=== PATIENT | female | born 1975 | race Caucasian/White ===

== ENCOUNTER 2017-02-24 14:35 | Emergency (ER) | payer SELFPAY ==
[~2017-02-24] VITALS: Ht 165.1 cm; Wt 113.4 kg
[~2017-02-24 14:35] MED LIST: AMOX500C2 PO; ASPI-586 PO; CEPH250C PO; DOCU100C37 PO; FERR325T18 PO; FERR325T74 PO; HYDR50TA76 PO; IBP600T1 PO; IBUP-1773 PO; LABE200T3 PO; NAPR-243 PO; OXYC-471 PO; PENI500T PO; PRM5C60 TOP; TRAM50TA2 PO; TRM50T PO; labetalol PO
--- OUTSIDE RECORDS SUMMARY | 2017-02-24 14:44 | XMS REPORT ---
Author Author TOBI TIM [facility] Address [address] [place] [address] Care Team Providers Care Dope Firer Name Role Phone TOBI TIM Unavailable PROBLEMS Type Condition ICD9-CM Code [id number] Code Onset Dates Condition Status SNOMED Code Problem Rubella non-immune status, antepartum O99.89 Active 471042876 Assessment Acute otitis externa of right ear, unspecified type H60.501 Oct, Active 04741593 Problem Gestational diabetes mellitus in third trimester, unspecified diabetic control O24.419 Active 45861114 Problem Preeclampsia, third trimester O14.93 Active 598870336 Problem Supervision of elderly multigravida in third trimester O09.523 Active 782558006 Problem Previous delivery affecting O34.21 Active 205977216 Problem Anemia during O99.019 Active 317941338 Problem Gestational hypertension, third trimester O13.3 Active 01571670 ALLERGIES Substance Reaction Event Type Date Status N.K.D.A. Unknown Non Drug Allergy Oct, Unknown SOCIAL HISTORY No smoking Hx information available PLAN OF CARE VITAL SIGNS Height 64 in 2015-10-27 Weight 204.4 lbs 2015-10-27 Heart Rate 80 bpm 2015-10-27 Respiratory Rate 20 2015-10-27 BMI 35.08 kg/m2 2015-10-27 Blood pressure systolic 144 mmHg 2015-10-27 Blood pressure diastolic 92 mmHg 2015-10-27 MEDICATIONS Medication Instructions Dosage Frequency Start Date End Date Duration Status Cortisporin 3.5-49216-6 Otic Three times a day 4 drops into affected ear 8h Oct, 07 days Active Ovando 5-325 MG Orally every 6 hrs 1 tablet as needed 6h Oct, Active RESULTS No Results PROCEDURES Procedure Date Ordered Related Diagnosis Body Site Office Visit, Est Pt., Level 3 Oct 27, 2015 IMMUNIZATIONS No Known Immunizations
--- OUTSIDE RECORDS SUMMARY | 2017-02-24 14:44 | XMS REPORT ---
Author Author ALEKSANDER JIMENEZ eClinicalWorks Address Unknown Phone Unavailable Care Team Providers Care Computer Field Technician Name Role Phone ALEKSANDER JIMENEZ CP Unavailable Allergies, Adverse Reactions, Alerts Substance Reaction Event Type N.K.D.A. Info Not Available Non Drug Allergy Problems Problem Type Condition Code Onset Dates Condition Status Assessment Gestational hypertension, third trimester O13.3 Active Assessment 29 weeks gestation of Z3A.29 Active Problem Supervision of elderly multigravida in third trimester O09.523 Active Problem Previous delivery affecting O34.21 Active Problem Gestational hypertension, third trimester O13.3 Active Problem Prediabetes R73.09 Active Assessment Supervision of elderly multigravida in third trimester O09.523 Active Problem History of pre-eclampsia Z87.59 Active Problem Rubella non-immune status, antepartum O99.89 Active Medications Medication Code System Code Instructions Start Date End Date Status Dosage Labetalol HCl [facility] [address]-21 100 MG Orally 2 times a day Feb 03, 2015 1 tablet Procedures Procedure Coding System Code Date Office Visit, Est Pt., Level 2 CPT-4 66448 Feb 03, 2015 URINE-NO MICRO CPT-4 96596 Feb 03, 2015 Vital Signs Date/Time: Feb 03, 2015 Temperature 97.2 F Weight 249.4 lbs Height 64 in BMI 42.809 Index Blood Pressure Diastolic 96 mmHg Blood Pressure Systolic 152 mmHg Cardiac Monitoring Heart Rate 80 bpm Results Name Result Date Reference Range Unit Abnormality Flag UA OB DIP (IN HOUSE) ----Glucose negative 20150203 ----Protein negative 20150203 Summary Purpose eClinicalWorks Submission
--- OUTSIDE RECORDS SUMMARY | 2017-02-24 14:44 | XMS REPORT ---
Author Author RUPERTO FIDEL Organization [facility] Address [address] [place] [address] Care Team Providers Care Government Auditor Name Role Phone FIDEL HICKEY Unavailable PROBLEMS Type Condition ICD9-CM Code [id number] Code Onset Dates Condition Status SNOMED Code Problem Previous delivery affecting O34.21 Active 151748024 Problem Gestational hypertension, third trimester O13.3 Active 46661722 Problem Supervision of elderly multigravida in third trimester O09.523 Active 479869221 Problem Rubella non-immune status, antepartum O99.89 Active 329150099 Problem Adjustment disorder with depressed mood F43.21 Active 79869306 Problem Alcohol dependence in remission F10.21 Active 380293140 Problem Preeclampsia, third trimester O14.93 Active 015983749 Problem Gestational diabetes mellitus in third trimester, unspecified diabetic control O24.419 Active 99308020 Problem Methamphetamine dependence F15.20 Active 795868953 Problem Anemia during O99.019 Active 149989052 ALLERGIES No Information SOCIAL HISTORY Never Assessed PLAN OF CARE VITAL SIGNS MEDICATIONS Unknown Medications RESULTS No Results PROCEDURES Procedure Date Ordered Result Body Site Alcohol and/or drug services July 04, 2016 ALCOHOL AND/OR DRUG ASSESSMENT July 04, 2016 IMMUNIZATIONS No Known Immunizations MEDICAL (GENERAL) HISTORY Type Description Date Medical History drug abuse-meth Medical History hypertension Medical History alcoholism Surgical History GALLSTONES 2003 Surgical History 2006 Hospitalization History MISCARRIAGE/DNC 2012
--- OUTSIDE RECORDS SUMMARY | 2017-02-24 14:44 | XMS REPORT ---
Author Author MARIA LUISA MENDES Organization [facility] Address [address] [place] [address] Care Team Providers Care Production Welding Supervisor Name Role Phone MARIA LUISA MENDES Unavailable PROBLEMS Type Condition ICD9-CM Code NCU53-ZQ Code Onset Dates Condition Status SNOMED Code Problem Previous delivery affecting O34.21 Active 216779751 Problem Gestational hypertension, third trimester O13.3 Active 74372712 Problem Supervision of elderly multigravida in third trimester O09.523 Active 285136773 Problem Rubella non-immune status, antepartum O99.89 Active 788790992 Problem Adjustment disorder with depressed mood F43.21 Active 59736112 Problem Alcohol dependence in remission F10.21 Active 934866539 Problem Preeclampsia, third trimester O14.93 Active 161885878 Problem Gestational diabetes mellitus in third trimester, unspecified diabetic control O24.419 Active 52134693 Problem Methamphetamine dependence F15.20 Active 685257640 Problem Anemia during O99.019 Active 901370428 ALLERGIES No Information SOCIAL HISTORY Never Assessed PLAN OF CARE VITAL SIGNS MEDICATIONS Unknown Medications RESULTS No Results PROCEDURES Procedure Date Ordered Result Body Site Alcohol and/or drug services July 04, 2016 IMMUNIZATIONS No Known Immunizations MEDICAL (GENERAL) HISTORY Type Description Date Medical History drug abuse-meth Medical History hypertension Medical History alcoholism Surgical History GALLSTONES 2003 Surgical History 2006 Hospitalization History MISCARRIAGE/DNC 2012
--- OUTSIDE RECORDS SUMMARY | 2017-02-24 14:44 | XMS REPORT ---
Author Author RUPERTO FIDEL Organization [facility] Address [address] [place] [address] Care Team Providers Care Bobbin Painter Name Role Phone FIDEL HICKEY Unavailable PROBLEMS Type Condition ICD9-CM Code MCR28-DX Code Onset Dates Condition Status SNOMED Code Problem Previous delivery affecting O34.21 Active 622749744 Problem Gestational hypertension, third trimester O13.3 Active 46911142 Problem Supervision of elderly multigravida in third trimester O09.523 Active 011466929 Problem Rubella non-immune status, antepartum O99.89 Active 984631193 Problem Adjustment disorder with depressed mood F43.21 Active 70995657 Problem Alcohol dependence in remission F10.21 Active 266442310 Problem Preeclampsia, third trimester O14.93 Active 924457743 Problem Gestational diabetes mellitus in third trimester, unspecified diabetic control O24.419 Active 72210477 Problem Methamphetamine dependence F15.20 Active 422237514 Problem Anemia during O99.019 Active 961126380 ALLERGIES No Information SOCIAL HISTORY Never Assessed PLAN OF CARE VITAL SIGNS MEDICATIONS Unknown Medications RESULTS No Results PROCEDURES No Known procedures IMMUNIZATIONS No Known Immunizations MEDICAL (GENERAL) HISTORY Type Description Date Medical History drug abuse-meth Medical History hypertension Medical History alcoholism Surgical History GALLSTONES 2002 Surgical History 2006 Hospitalization History MISCARRIAGE/DNC 2012
--- OUTSIDE RECORDS SUMMARY | 2017-02-24 14:44 | XMS REPORT ---
Author Author ALEKSANDER JIMENEZ [facility] eClinicalWorks Address Unknown Phone Unavailable Care Team Providers Care Flame Planer Name Role Phone ALEKSANDER JIMENEZ CP Unavailable Allergies, Adverse Reactions, Alerts Substance Reaction Event Type N.K.D.A. Info Not Available Non Drug Allergy Problems Problem Type Condition Code Onset Dates Condition Status Assessment Supervision of elderly multigravida, second trimester O09.522 Active Assessment 24 weeks gestation of Z3A.24 Active Problem Supervision of elderly multigravida, second trimester O09.522 Active Problem Previous delivery affecting O34.21 Active Problem Gestational hypertension, second trimester O13.2 Active Problem Prediabetes R73.09 Active Assessment Gestational hypertension, second trimester O13.2 Active Problem History of pre-eclampsia Z87.59 Active Problem Rubella non-immune status, antepartum O99.89 Active Medications Medication Code System Code Instructions Start Date End Date Status Dosage Trazodone HCl [facility] [address]-71 50 MG Orally Once a day July 13, 2014 1 tablet at bedtime as needed Ferrous Sulfate [facility] [address]-79 325 (65 Fe) MG Orally Once a day Sep 28, 2014 1 tablet Zoloft [facility] [address]-75 25 MG Orally Once a day July 13, 2014 1 tablet Vitamins ND 0 (Dis) Orally not defined Procedures Procedure Coding System Code Date Office Visit, Est Pt., Level 2 CPT-4 20223 Dec 27, 2014 URINE-NO MICRO CPT-4 54964 Dec 27, 2014 Vital Signs Date/Time: Dec 27, 2014 Temperature 98.8 F Weight 250.0 lbs Height 64 in BMI 42.912 Index Blood Pressure Diastolic 84 mmHg Blood Pressure Systolic 132 mmHg Cardiac Monitoring Heart Rate 84 bpm Results Name Result Date Reference Range Unit Abnormality Flag UA OB DIP (IN HOUSE) Summary Purpose eClinicalWorks Submission
--- OUTSIDE RECORDS SUMMARY | 2017-02-24 14:44 | XMS REPORT ---
Author Author ALEKSANDER JIMENEZ [facility] eClinicalWorks Address Unknown Phone Unavailable Care Team Providers Care Accounting Systems Analyst Name Role Phone ALEKSANDER JIMENEZ Unavailable Allergies No Known Allergies Problems Problem Type Condition Code Onset Dates Condition Status Assessment Proteinuria affecting O12.10 Active Problem Supervision of elderly multigravida in third trimester O09.523 Active Problem Previous delivery affecting O34.21 Active Problem Gestational hypertension, third trimester O13.3 Active Assessment Supervision of elderly multigravida in third trimester O09.523 Active Assessment History of pre-eclampsia Z87.59 Active Problem Rubella non-immune status, antepartum O99.89 Active Assessment 31 weeks gestation of Z3A.31 Active Medications No Known Medications Procedures Procedure Coding System Code Date LACTATE (LD) (LDH) ENZYME CPT-4 49619 Feb 14, 2015 ASSAY OF BLOOD/URIC ACID CPT-4 60803 Feb 14, 2015 URINE-NO MICRO CPT-4 88788 Feb 14, 2015 VENIPUNCT, ROUTINE* CPT-4 96343 Feb 14, 2015 Office Visit, Est Pt., Level 3 CPT-4 09338 Feb 14, 2015 ASSAY OF URINE CREATININE CPT-4 97176 Feb 14, 2015 COMPREHEN METABOLIC PANEL CPT-4 09909 Feb 14, 2015 GLUCOSE TEST CPT-4 63542 Feb 14, 2015 COMPLETE CBC W/AUTO DIFF WBC CPT-4 90389 Feb 14, 2015 Vital Signs Date/Time: Feb 14, 2015 Temperature 97.6 F Weight 257.3 lbs Height 64 in BMI 44.165 Index Blood Pressure Diastolic 90 mmHg Blood Pressure Systolic 160 mmHg Cardiac Monitoring Heart Rate 82 bpm Results Name Result Date Reference Range Unit Abnormality Flag URIC ACID, SERUM ----Uric Acid, Serum 2.7 20150214 2.5-7.1 mg/dL URINE PROTEIN TO CREATININE RATIO ----Creatinine, Urine 80.1 20150214 15.0-278.0 mg/dL ----Protein/Creat Ratio 273 20150214 0-200 mg/g creat H ----Protein,Total,Urine 21.9 89486904 0.0-15.0 mg/dL H LDH ----LDH 162 20150214 119-226 IU/L GLUCOSE BHARTI 1 HOUR ----Gestational Diabetes Screen 172 20150214 65-139 mg/dL H CBC ----RDW 16.7 91316777 12.3-15.4 % H ----MCHC 30.0 00528547 31.5-35.7 g/dL L ----MCH 20.9 86526277 26.6-33.0 pg L ----MCV 70 88970628 79-97 fL L ----Hematocrit 27.0 83980569 34.0-46.6 % L ----Hemoglobin 8.1 70271080 11.1-15.9 g/dL L ----Immature Granulocytes 0 15084034 % ----RBC 3.88 12685085 3.77-5.28 x10E6/uL ----WBC 8.9 60312235 3.4-10.8 x10E3/uL ----Immature Grans (Abs) 0.0 74978818 0.0-0.1 x10E3/uL ----Eos (Absolute) 0.1 79296319 0.0-0.4 x10E3/uL ----Basos 0 87491533 % ----Baso (Absolute) 0.0 01608965 0.0-0.2 x10E3/uL ----Neutrophils (Absolute) 6.3 62005594 1.4-7.0 x10E3/uL ----Lymphs (Absolute) 1.9 96803178 0.7-3.1 x10E3/uL ----Monocytes(Absolute) 0.4 20651748 0.1-0.9 x10E3/uL ----Neutrophils 71 20902146 % ----Lymphs 22 51494015 % ----Monocytes 5 64299193 % ----Eos 2 79764303 % ----Platelets 413 47081587 150-379 x10E3/uL H CMP ----Creatinine, Serum 0.45 26406087 0.57-1.00 mg/dL L ----BUN 4 20150214 6-24 mg/dL L ----eGFR If Africn Am 145 71722209 >59 mL/min/1.73 ----eGFR If NonAfricn Am 126 71991730 >59 mL/min/1.73 ----Sodium, Serum 136 01549690 134-144 mmol/L ----BUN/Creatinine Ratio 9 20150214 9-23 ----Chloride, Serum 103 20150214 97-108 mmol/L ----Potassium, Serum 3.9 20150214 3.5-5.2 mmol/L ----Carbon Dioxide, Total 21 20150214 18-29 mmol/L ----Protein, Total, Serum 6.1 20150214 6.0-8.5 g/dL ----Calcium, Serum 8.0 20150214 8.7-10.2 mg/dL L ----Globulin, Total 3.0 17530860 1.5-4.5 g/dL ----Albumin, Serum 3.1 20150214 3.5-5.5 g/dL L ----Bilirubin, Total <0.2 20150214 0.0-1.2 mg/dL ----Glucose, Serum 186 20150214 65-99 mg/dL H ----A/G Ratio 1.0 20150214 1.1-2.5 L ----ALT (SGPT) 6 20150214 0-32 IU/L ----Alkaline Phosphatase, S 117 88108116 39-117 IU/L ----AST (SGOT) 8 20150214 0-40 IU/L Summary Purpose eClinicalWorks Submission
--- OUTSIDE RECORDS SUMMARY | 2017-02-24 14:45 | XMS REPORT ---
Author Author ALEKSANDER JIMENEZ [facility] eClinicalWorks Address Unknown Phone Unavailable Care Team Providers Care Fisher Trawl Line Name Role Phone ALEKSANDER JIMENEZ CP Unavailable Allergies No Known Allergies Problems Problem Type Condition Code Onset Dates Condition Status Problem Previous delivery affecting O34.21 Active Problem History of pre-eclampsia Z87.59 Active Problem Supervision of elderly multigravida, second trimester O09.522 Active Assessment Elevated glucose tolerance test R73.02 Active Problem Rubella non-immune status, antepartum O99.89 Active Problem Glucose intolerance (pre-diabetes) 790.29 Active Medications No Known Medications Results No Known Results Summary Purpose eClinicalWorks Submission
--- OUTSIDE RECORDS SUMMARY | 2017-02-24 14:45 | XMS REPORT ---
Author Author ALEKSANDER JIMENEZ [facility] eClinicalWorks Address Unknown Phone Unavailable Care Team Providers Care Abnormal Psychology Teacher Name Role Phone ALEKSANDER JIMENEZ Unavailable Allergies No Known Allergies Problems Problem Type Condition Code Onset Dates Condition Status Problem Preeclampsia, third trimester O14.93 Active Problem Anemia during O99.019 Active Problem Gestational diabetes mellitus in third trimester, unspecified diabetic control O24.419 Active Problem Previous delivery affecting O34.21 Active Problem Rubella non-immune status, antepartum O99.89 Active Problem Gestational hypertension, third trimester O13.3 Active Problem Supervision of elderly multigravida in third trimester O09.523 Active Medications No Known Medications Results No Known Results Summary Purpose eClinicalWorks Submission
--- OUTSIDE RECORDS SUMMARY | 2017-02-24 14:45 | XMS REPORT ---
Author Author ALEKSANDER JIMENEZ [facility] eClinicalWorks Address Unknown Phone Unavailable Care Team Providers Care Splicer Operator Name Role Phone ALEKSANDER JIMENEZ CP Unavailable Allergies No Known Allergies Problems Problem Type Condition Code Onset Dates Condition Status Problem Previous delivery affecting O34.21 Active Problem History of pre-eclampsia Z87.59 Active Problem Supervision of elderly multigravida, second trimester O09.522 Active Assessment Supervision of elderly multigravida, second trimester O09.522 Active Assessment 18 weeks gestation of Z3A.18 Active Problem Rubella non-immune status, antepartum O99.89 Active Problem Glucose intolerance (pre-diabetes) 790.29 Active Medications No Known Medications Procedures Procedure Coding System Code Date URINE-NO MICRO CPT-4 32513 Nov 18, 2014 GLUCOSE TEST CPT-4 14693 Nov 18, 2014 Office Visit, Est Pt., Level 3 CPT-4 93870 Nov 18, 2014 No Charge CPT-4 01376 Nov 18, 2014 TRICHOMONAS VAGIN, DIR PROBE CPT-4 92606 Nov 18, 2014 VENIPUNCT, ROUTINE* CPT-4 99210 Nov 18, 2014 CULTURE, BACTERIA, OTHER CPT-4 85936 Nov 18, 2014 Vital Signs Date/Time: Nov 18, 2014 Temperature 98.4 F Weight 248.4 lbs Height 64 in BMI 42.638 Index Blood Pressure Diastolic 94 mmHg Blood Pressure Systolic 138 mmHg Cardiac Monitoring Heart Rate 80 bpm Results Name Result Date Reference Range Unit Abnormality Flag TRICHOMONAS (IN HOUSE) GLUCOSE BHARTI 1 HOUR Summary Purpose eClinicalWorks Submission
--- OUTSIDE RECORDS SUMMARY | 2017-02-24 14:45 | XMS REPORT ---
Author Author ALEKSANDER JIMENEZ [facility] eClinicalWorks Address Unknown Phone Unavailable Care Team Providers Care Panel Lay Up Worker Name Role Phone ALEKSANDER JIMENEZ CP Unavailable Allergies No Known Allergies Problems Problem Type Condition Code Onset Dates Condition Status Problem Supervision of elderly multigravida in third trimester O09.523 Active Problem Previous delivery affecting O34.21 Active Problem Gestational hypertension, third trimester O13.3 Active Problem Prediabetes R73.09 Active Assessment Proteinuria affecting O12.10 Active Problem History of pre-eclampsia Z87.59 Active Problem Rubella non-immune status, antepartum O99.89 Active Medications No Known Medications Procedures Procedure Coding System Code Date ASSAY OF PROTEIN, URINE CPT-4 09281 Feb 16, 2015 Results No Known Results Summary Purpose eClinicalWorks Submission
--- OUTSIDE RECORDS SUMMARY | 2017-02-24 14:45 | XMS REPORT ---
Author AIDEN Smith [facility] eClinicalWorks Address Unknown Phone Unavailable Care Team Providers Care Elderly Sitter Name Role Phone AIDEN EATON CP Unavailable Allergies, Adverse Reactions, Alerts Substance Reaction Event Type N.K.D.A. Info Not Available Non Drug Allergy Problems Problem Type Condition ICD-9 Code Onset Dates Condition Status Problem Previous section V45.89 Active Problem History of pre-eclampsia in prior , currently V23.49 Active Problem Supervision of elderly multigravida (>=35 years old at time of delivery) V23.82 Active Assessment Impacted cerumen of left ear 380.4 Active Assessment Chronic serous OM (otitis media) 381.10 Active Medications No Known Medications Procedures Procedure Coding System Code Date Office Visit, Est Pt., Level 3 CPT-4 36482 Oct 06, 2014 Vital Signs Date/Time: Oct 06, 2014 Temperature 98.4 F Weight 249.2 lbs Height 64 in BMI 42.77 Index Blood Pressure Diastolic 82 mmHg Blood Pressure Systolic 136 mmHg Cardiac Monitoring Heart Rate 72 bpm Results No Known Results Summary Purpose eClinicalWorks Submission
--- OUTSIDE RECORDS SUMMARY | 2017-02-24 14:45 | XMS REPORT ---
Author Author LAURE CASTELLANOS [facility] Address [address] [place] [address] Care Team Providers Care Powder Worker Tnt Name Role Phone LAURE CASTELLANOS Unavailable PROBLEMS Type Condition ICD9-CM Code HEE73-FL Code Onset Dates Condition Status SNOMED Code Problem Previous delivery affecting O34.21 Active 799028664 Problem Gestational hypertension, third trimester O13.3 Active 41534486 Problem Supervision of elderly multigravida in third trimester O09.523 Active 685549738 Problem Rubella non-immune status, antepartum O99.89 Active 485906165 Problem Adjustment disorder with depressed mood F43.21 Active 92951315 Problem Alcohol dependence in remission F10.21 Active 254048250 Problem Preeclampsia, third trimester O14.93 Active 361669749 Problem Gestational diabetes mellitus in third trimester, unspecified diabetic control O24.419 Active 63880786 Problem Methamphetamine dependence F15.20 Active 014384599 Problem Anemia during O99.019 Active 860545364 ALLERGIES No Information SOCIAL HISTORY Never Assessed PLAN OF CARE VITAL SIGNS MEDICATIONS Unknown Medications RESULTS No Results PROCEDURES No Known procedures IMMUNIZATIONS No Known Immunizations MEDICAL (GENERAL) HISTORY Type Description Date Medical History drug abuse-meth Medical History hypertension Medical History alcoholism Surgical History GALLSTONES 2002 Surgical History 2006 Hospitalization History MISCARRIAGE/DNC 2012
--- OUTSIDE RECORDS SUMMARY | 2017-02-24 14:45 | XMS REPORT ---
Author Author ALEKSANDER JIMENEZ [facility] eClinicalWorks Address Unknown Phone Unavailable Care Team Providers Care Orchard Worker Name Role Phone ALEKSANDER JIMENEZ CP Unavailable Allergies No Known Allergies Problems Problem Type Condition Code Onset Dates Condition Status Assessment Vaginal candidiasis B37.3 Active Assessment History of pre-eclampsia Z87.59 Active Assessment 28 weeks gestation of Z3A.28 Active Problem Previous delivery affecting O34.21 Active Problem History of pre-eclampsia Z87.59 Active Problem Supervision of elderly multigravida in third trimester O09.523 Active Assessment Supervision of elderly multigravida in third trimester O09.523 Active Assessment Previous delivery affecting O34.21 Active Problem Rubella non-immune status, antepartum O99.89 Active Problem Prediabetes R73.09 Active Medications Medication Code System Code Instructions Start Date End Date Status Dosage Clotrimazole [facility] [address]-01 1 % Vaginal Once a day Jan 24, 2015Jan 1 application at bedtime Procedures Procedure Coding System Code Date COMPLETE CBC W/AUTO DIFF WBC CPT-4 89400 Jan 24, 2015 Office Visit, Est Pt., Level 3 CPT-4 51230 Jan 24, 2015 URINE-NO MICRO CPT-4 40570 Jan 24, 2015 Vital Signs Date/Time: Jan 24, 2015 Temperature 98.2 F Weight 256.1 lbs Height 64 in BMI 43.959 Index Blood Pressure Diastolic 90 mmHg Blood Pressure Systolic 154 mmHg Cardiac Monitoring Heart Rate 84 bpm Results Name Result Date Reference Range Unit Abnormality Flag UA OB DIP (IN HOUSE) ----Glucose negative 20150124 ----Protein negative 20150124 Summary Purpose eClinicalWorks Submission
--- OUTSIDE RECORDS SUMMARY | 2017-02-24 14:45 | XMS REPORT ---
Author Author ALEKSANDER JIMENEZ [facility] eClinicalWorks Address Unknown Phone Unavailable Care Team Providers Care Rotational Moulding Operator Name Role Phone ALEKSANDER JIMENEZ Unavailable Allergies No Known Allergies Problems Problem Type Condition Code Onset Dates Condition Status Assessment Gestational diabetes mellitus in third trimester, unspecified diabetic control O24.419 Active Problem Preeclampsia, third trimester O14.93 Active Problem Anemia during O99.019 Active Problem Gestational diabetes mellitus in third trimester, unspecified diabetic control O24.419 Active Problem Previous delivery affecting O34.21 Active Problem Rubella non-immune status, antepartum O99.89 Active Problem Gestational hypertension, third trimester O13.3 Active Problem Supervision of elderly multigravida in third trimester O09.523 Active Medications Medication Code System Code Instructions Start Date End Date Status Dosage Blood Glucose Test Strip NDC 0 Contour Meter 4 times a day Feb 23, 2015 as directed Mandy Contour Monitor NDC [address]-04 w/Device Feb 23, 2015 as directed Mandy Microlet Lancets NDC 0 ... 4 times a day Feb 23, 2015 as directed Results No Known Results Summary Purpose eClinicalWorks Submission
--- OUTSIDE RECORDS SUMMARY | 2017-02-24 14:45 | XMS REPORT ---
Author ALEKSANDER Abraham eClinicalWorks Address Unknown Phone Unavailable Care Team Providers Care Lead Assistant Manager Name Role Phone ALEKSANDER JIMENEZ Unavailable Allergies, Adverse Reactions, Alerts Substance Reaction Event Type N.K.D.A. Info Not Available Non Drug Allergy Problems Problem Type Condition Code Onset Dates Condition Status Assessment Anemia during O99.019 Active Assessment Supervision of elderly multigravida in third trimester O09.523 Active Assessment Preeclampsia, third trimester O14.93 Active Problem Preeclampsia, third trimester O14.93 Active Problem Anemia during O99.019 Active Problem Gestational diabetes mellitus in third trimester, unspecified diabetic control O24.419 Active Problem Previous delivery affecting O34.21 Active Problem Rubella non-immune status, antepartum O99.89 Active Problem Gestational hypertension, third trimester O13.3 Active Problem Supervision of elderly multigravida in third trimester O09.523 Active Assessment 32 weeks gestation of Z3A.32 Active Assessment Gestational hypertension, third trimester O13.3 Active Assessment Gestational diabetes mellitus in third trimester, unspecified diabetic control O24.419 Active Medications Medication Code System Code Instructions Start Date End Date Status Dosage Labetalol HCl [facility] [address]-72 200 MG Orally 2 times a day Feb 03, 2015 1 tablet Ferrous Sulfate [facility] [address]-20 325 (65 Fe) MG Orally 2 times a day Feb 22, 2015 1 tablet Procedures Procedure Coding System Code Date LACTATE (LD) (LDH) ENZYME CPT-4 38624 Feb 22, 2015 ASSAY OF BLOOD/URIC ACID CPT-4 98472 Feb 22, 2015 URINE-NO MICRO CPT-4 63402 Feb 22, 2015 Office Visit, Est Pt., Level 4 CPT-4 66263 Feb 22, 2015 NON-STRESS TEST CPT-4 43365 Feb 22, 2015 VENIPUNCT, ROUTINE* CPT-4 50144 Feb 22, 2015 ASSAY OF PROTEIN, URINE CPT-4 56237 Feb 22, 2015 COMPREHEN METABOLIC PANEL CPT-4 61497 Feb 22, 2015 COMPLETE CBC W/AUTO DIFF WBC CPT-4 24318 Feb 22, 2015 ASSAY OF URINE CREATININE CPT-4 62856 Feb 22, 2015 Vital Signs Date/Time: Feb 22, 2015 Temperature 98.2 F Weight 251.7 lbs Height 64 in BMI 43.204 Index Blood Pressure Diastolic 100 mmHg Blood Pressure Systolic 152 mmHg Cardiac Monitoring Heart Rate 96 bpm Results Name Result Date Reference Range Unit Abnormality Flag NON-STRESS TEST LDH ----LDH 183 20150223 119-226 IU/L UA OB DIP (IN HOUSE) ----Glucose negative 20150222 ----Protein trace 20150222 ROUTINE VENIPUNCTURE CMP ----BUN/Creatinine Ratio 8 20150223 9-23 L ----eGFR If Africn Am 141 59470327 >59 mL/min/1.73 ----eGFR If NonAfricn Am 122 44047239 >59 mL/min/1.73 ----Creatinine, Serum 0.49 20150223 0.57-1.00 mg/dL L ----Chloride, Serum 102 20150223 97-108 mmol/L ----Potassium, Serum 4.4 18169245 3.5-5.2 mmol/L ----Sodium, Serum 136 59472688 134-144 mmol/L ----Protein, Total, Serum 6.8 15550393 6.0-8.5 g/dL ----Albumin, Serum 3.3 65745018 3.5-5.5 g/dL L ----Globulin, Total 3.5 22908387 1.5-4.5 g/dL ----A/G Ratio 0.9 20150223 1.1-2.5 L ----BUN 4 20150223 6-24 mg/dL L ----Glucose, Serum 186 41256189 65-99 mg/dL H ----Carbon Dioxide, Total 19 20150223 18-29 mmol/L ----Calcium, Serum 8.8 32299467 8.7-10.2 mg/dL ----AST (SGOT) 11 20150223 0-40 IU/L ----ALT (SGPT) 6 20150223 0-32 IU/L ----Bilirubin, Total <0.2 14342510 0.0-1.2 mg/dL ----Alkaline Phosphatase, S 134 20150223 39-117 IU/L H URIC ACID, SERUM ----Uric Acid, Serum 2.7 20150223 2.5-7.1 mg/dL CBC ----Hemoglobin 7.9 20150223 11.1-15.9 g/dL L ----RBC 3.87 20150223 3.77-5.28 x10E6/uL ----MCV 70 20150223 79-97 fL L ----Hematocrit 27.1 20150223 34.0-46.6 % L ----MCHC 29.2 20150223 31.5-35.7 g/dL L ----MCH 20.4 50392447 26.6-33.0 pg L ----Platelets 426 20150223 150-379 x10E3/uL H ----RDW 17.1 20150223 12.3-15.4 % H ----Neutrophils 84 50375624 % ----Monocytes 4 65222389 % ----Lymphs 12 83020149 % ----Basos 0 20150223 % ----Eos 0 86998367 % ----Immature Grans (Abs) 0.0 44725744 0.0-0.1 x10E3/uL ----Lymphs (Absolute) 1.2 82676788 0.7-3.1 x10E3/uL ----WBC 10.0 90534769 3.4-10.8 x10E3/uL ----Immature Granulocytes 0 28383632 % ----Neutrophils (Absolute) 8.3 67738066 1.4-7.0 x10E3/uL H ----Baso (Absolute) 0.0 38642651 0.0-0.2 x10E3/uL ----Monocytes(Absolute) 0.4 41754860 0.1-0.9 x10E3/uL ----Eos (Absolute) 0.0 45191717 0.0-0.4 x10E3/uL Summary Purpose eClinicalWorks Submission
--- OUTSIDE RECORDS SUMMARY | 2017-02-24 14:45 | XMS REPORT ---
Author Author ALEX COLEMAN [facility] eClinicalWorks Address Unknown Phone Unavailable Care Team Providers Care Costume Technician Name Role Phone ALEX COLEMAN CP Unavailable Allergies, Adverse Reactions, Alerts Substance Reaction Event Type N.K.D.A. Info Not Available Non Drug Allergy Problems Problem Type Condition Code Onset Dates Condition Status Assessment Elevated blood pressure I10 Active Assessment Sore throat J02.9 Active Assessment Strep throat J02.0 Active Problem Preeclampsia, third trimester O14.93 Active [...] Instructions Start Date End Date Status Dosage Theraflu Cold & Cough [facility] [address]-12 10-20-20 MG Orally every 4 hrs 1 packet as needed Ferrous Sulfate [facility] [address]-75 325 (65 Fe) MG Orally 2 times a day Feb 22, 2015 1 tablet NyQuil NDC 0 not defined Amoxicillin [facility] [address]-39 500 MG Orally 3 times a day Sep 28, 2015 Oct 08, 2015 1 capsule Procedures Procedure Coding System Code Date Office Visit, Est Pt., Level 3 CPT-4 37827 Sep 28, 2015 STREP A ASSAY W/OPTIC CPT-4 94554 Sep 28, 2015 Vital Signs Date/Time: Sep 28, 2015 Cardiac Monitoring Heart Rate 78 bpm Weight 204.5 lbs Height 64 in BMI 35.10 Index Blood Pressure Diastolic 100 mmHg Blood Pressure Systolic 132 mmHg Results No Known Results Summary Purpose eClinicalWorks Submission
--- OUTSIDE RECORDS SUMMARY | 2017-02-24 14:45 | XMS REPORT ---
Author Author ALEX COLEMAN Organization [employer] Address Unknown Phone Unavailable Care Team Providers Care Bumper Machine Operator Name Role Phone ALEX COLEMAN CP Unavailable Allergies No Known Allergies Problems [...]
--- OUTSIDE RECORDS SUMMARY | 2017-02-24 14:46 | XMS REPORT ---
Author Author MARIA LUISA MENDES Organization [facility] Address [address] [place] [address] Care Team Providers Care Vocational Rehabilitation Consultant Name Role Phone MARIA LUISA MENDES Unavailable PROBLEMS Type Condition ICD9-CM Code OPH19-JK Code Onset Dates Condition Status SNOMED Code Problem Previous delivery affecting O34.21 Active 996151081 Problem Gestational hypertension, third trimester O13.3 Active 23865073 Problem Supervision of elderly multigravida in third trimester O09.523 Active 829056895 Problem Rubella non-immune status, antepartum O99.89 Active 282613898 Problem Adjustment disorder with depressed mood F43.21 Active 04811199 Problem Alcohol dependence in remission F10.21 Active 106326471 Problem Preeclampsia, third trimester O14.93 Active 010294507 Problem Gestational diabetes mellitus in third trimester, unspecified diabetic control O24.419 Active 44569254 Problem Methamphetamine dependence F15.20 Active 435535707 Problem Anemia during O99.019 Active 594775934 ALLERGIES No Information SOCIAL HISTORY Never Assessed PLAN OF CARE VITAL SIGNS MEDICATIONS Unknown Medications RESULTS No Results PROCEDURES Procedure Date Ordered Result Body Site Alcohol and/or drug services July 03, 2016 IMMUNIZATIONS No Known Immunizations MEDICAL (GENERAL) HISTORY Type Description Date Medical History drug abuse-meth Medical History hypertension Medical History alcoholism Surgical History GALLSTONES 2003 Surgical History 2006 Hospitalization History MISCARRIAGE/DNC 2012
--- OUTSIDE RECORDS SUMMARY | 2017-02-24 14:46 | XMS REPORT | Continuity of Care Document ---
Author Author [facility] Address Unknown Phone Unavailable Allergies Active Description Code Type Severity Reaction Onset Reported/Identified Relationship to Patient Clinical Status Yes No Known Drug Allergies [id number] Drug Allergy Unknown N/A 01/05/2007 Medications There is no data. Problems Date Dx Coded Attending Type Code Diagnosis Diagnosed By 10/30/2007 LAURE CASTELLANOS DO 278.02 OVERWEIGHT 10/30/2007 LAURE CASTELLANOS DO 401.1 HYPERTENSION, BENIGN ESSENTIAL 10/30/2007 LAURE CASTELLANOS DO 723.9 CERVICAL NECK DISORDER NOS 10/30/2007 NAGI LEONE 278.02 OVERWEIGHT 10/30/2007 NAGI LEONE 401.1 HYPERTENSION, BENIGN ESSENTIAL 10/30/2007 NAGI LEONE 723.9 CERVICAL NECK DISORDER NOS 11/29/2009 LAURE CASTELLANOS DO 034.0 STREPTOCOCCAL SORE THROAT 11/29/2009 LAURE CASTELLANOS DO 382.00 OTITIS MEDIA ACUTE SUPPURATIVE 11/29/2009 NAGI LEONE 034.0 STREPTOCOCCAL SORE THROAT 11/29/2009 NAGI LEONE 382.00 OTITIS MEDIA ACUTE SUPPURATIVE 12/17/2011 Ot 521.00 12/17/2011 Ot 525.9 01/09/2012 Ot 521.00 01/09/2012 Ot 525.9 03/03/2012 LAURE CASTELLANOS DO V25.12 IUD REMOVAL 03/03/2012 LAURE CASTELLANOS DO V73.81 HPV SCREENING 03/03/2012 LAURE CASTELLANOS DO V74.5 STD SCREEN 03/03/2012 LAURE CASTELLANOS DO V76.2 CERVICAL CANCER SCREENING (PAP SMEAR) 03/03/2012 NAGI LEONE V25.12 IUD REMOVAL 03/03/2012 NAGI LEONE V73.81 HPV SCREENING 03/03/2012 [facility], NAGI Delgado V74.5 STD SCREEN 03/03/2012 MITRA ALVAREZ, NAGI Sandy V76.2 CERVICAL CANCER SCREENING (PAP SMEAR) 07/26/2012 ÁNGEL AYALA, LA NENA Fuentes Ot 782.1 01/24/2013 BENJAMIN MAGUIRE DELIMER Ot 620.2 01/24/2013 BENJAMIN MAGUIRE DELIMER Ot 623.8 01/24/2013 BENJAMIN MAGUIRE DELIMER Ot 640.03 01/24/2013 BENJAMIN MAGUIRE DELIMER Ot 654.43 01/26/2013 SANDRA QUINTERO DO Ot 285.1 01/26/2013 SANDRA QUINTERO DO Ot 634.11 04/19/2014 [facility], NAGI Sandy 626.6 METRORRHAGIA 04/19/2014 MITRA ALVAREZ, NAGI Sandy V72.31 FARM LOAN REPRESENTATIVE EXAM, ROUTINE 04/19/2014 MITRA ALVAREZ, NAGI Sandy V76.10 BREAST CANCER SCREENING 06/15/2014 [facility], NAGI Sandy 309.0 AD ADJ D/O W DEPRESSED 09/01/2014 BAR NICK Ot 218.9 09/01/2014 BAR NICK Ot 640.03 09/01/2014 BAR NICK Ot 648.93 10/08/2014 ALBINA MONDRAGON MD Ot 648.93 10/08/2014 ALBINA MONDRAGON MD Ot 910.4 10/08/2014 ALBINA MONDRAGON MD Ot E000.8 10/08/2014 ALBINA MONDRAGON MD Ot E906.4 10/10/2014 ANJELICA TREVINO A DELIMER Ot V58.81 10/11/2014 SHAWANDA TREVINOIDI A DELIMER Ot V58.81 10/20/2014 BELINDA ANJELICA A DELIMER Ot V58.81 11/23/2014 BELINDA ANJELICA A DELIMER Ot V58.81 12/08/2014 ALEKSANDER JIMENEZ MD Ot O09.522 12/08/2014 ALEKSANDER JIMENEZ MD Ot Z3A.19 12/12/2014 ALEKSANDER JIMENEZ MD N Ot R73.02 01/03/2015 BARBARA AYALA, ALEKSANDER Odom Ot O09.522 01/03/2015 BARBARA AYALA, ALEKSANDER Odom Ot Z3A.25 03/02/2015 FENECH DO, LUCI Wray Ot O14.03 03/02/2015 FENECH DO, LUCI Wray Ot O26.853 03/02/2015 FENECH DO, LUCI S Ot Z3A.34 03/20/2015 FENECH DO, LUCI S Ot D62 03/20/2015 FENECH DO, LUCI S Ot E66.01 03/20/2015 FENECH DO, LUCI S Ot E88.81 03/20/2015 FENECH DO, LUCI S Ot N39.0 03/20/2015 FENECH DO, LUCI S Ot O09.523 03/20/2015 FENECH DO, LUCI S Ot O14.13 03/20/2015 FENECH DO, LUCI Wray Ot O23.43 03/20/2015 FENECH DO, LUCI Wray Ot O34.21 03/20/2015 FENECH DO, LUCI S Ot O90.81 03/20/2015 FENECH DO, LUCI S Ot O99.013 03/20/2015 FENECH DO, LUCI S Ot O99.214 03/20/2015 FENECH DO, LUCI S Ot O99.284 03/20/2015 FENECH DO, LUCI Wray Ot Z37.0 03/20/2015 FENECH DO, LUCI Wray Ot Z3A.35 03/20/2015 FENECH DO, LUCI Wray Ot Z68.41 03/28/2015 Ot O10.919 03/28/2015 Ot Z3A.00 03/31/2015 BARBARA AYALA, ALEKSANDER Odom Ot O14.90 03/31/2015 BARBARA AYALA, ALEKSANDER Odom Ot O99.810 03/31/2015 ALEKSANDER JIMENEZ MD Ot Z3A.00 04/05/2015 Ot O10.919 04/05/2015 Ot Z3A.00 05/22/2015 ALEKSANDER JIMENEZ MD Ot O14.90 05/22/2015 BARBARA AYALA, ALEKSANDER Odom Ot O99.810 05/22/2015 BARBARA AYALA, ALEKSANDER Odom Ot Z3A.00 Procedures Code Description [place] [address] IUD REMOVAL 03/03/2012 09016 GC/CHLAM PROBE (STATE) 03/03/2012 77980 TRICHOMONAS (IN-HOUSE) 03/03/2012 03886 PAP SMEAR 03/03/2012 Q0091 PAP SMEAR OBTAIN SMEAR 03/03/2012 77184 PSYCH DIAGNOSTIC EVALUATION 06/15/2014 Results There is no data. Encounters ACCT No. Visit Date/Time Discharge Status Pt. Type Provider Facility Loc./Unit Complaint [id number] 06/15/2014 10:52:00 06/15/2014 23:59:59 CLS Outpatient MITRA BEAUCHAMP NAGI Sandy [id number] 03/03/2012 15:05:00 03/03/2012 23:59:59 CLS Outpatient LAURE CASTELLANOS DO [id number] 05/23/2015 00:07:00 05/23/2015 23:59:59 CLS Preadmit ALEKSANDER JIMENEZ MD Via [facility] LAB [id number] 02/21/2015 07:35:00 05/22/2015 00:01:00 DIS Outpatient ALEKSANDER JIMENEZ MD [facility] LAB [id number] 03/18/2015 16:15:00 03/20/2015 11:20:00 DIS Inpatient EVANGELINALUCI NASCIMENTO DO [facility] [id number] 03/02/2015 21:20:00 03/02/2015 22:41:00 DIS Outpatient LUCI BENSON DO [facility] [id number] 02/24/2015 12:27:00 02/24/2015 23:59:59 CLS Outpatient ALEKSANDER JIMENEZ MD Via [facility] RAD [id number] 02/22/2015 08:09:00 02/22/2015 08:36:00 DIS Outpatient LAURE CASTELLANOS DO [facility] [id number] 12/23/2014 12:06:00 12/23/2014 23:59:59 CLS Outpatient ALEKSANDER JIMENEZ MD Via [facility] RAD [id number] 11/29/2014 08:45:00 11/29/2014 23:59:59 CLS Outpatient ALEKSANDER JIMENEZ MD Via [facility] LAB [id number] 11/23/2014 14:45:00 11/23/2014 23:59:59 CLS Outpatient BARBARA AYALA, ALEKSANDER Odom [facility] RAD [id number] 10/08/2014 13:46:00 10/08/2014 17:13:00 DIS Emergency ALBINA MONDRAGON MD Via [facility] ER [id number] 09/29/2014 10:49:00 09/29/2014 23:59:59 CLS Outpatient BELINDAANJELICA GARLAND DELIMER Via [facility] RAD [id number] 09/01/2014 18:17:00 09/01/2014 21:27:00 DIS Emergency BAR NICK Via [facility] ER [id number] 01/25/2013 11:46:00 01/26/2013 11:50:00 DIS Outpatient SANDRA QUINTERO DO [facility] [id number] 01/24/2013 15:41:00 01/24/2013 18:38:00 DIS Emergency BENJAMIN MAGUIRE DELIMER Via [facility] ER [id number] 07/26/2012 17:21:00 07/26/2012 18:10:00 DIS Emergency ÁNGEL AYALA, LA NENA Fuentes Via [facility] ER [id number] 03/16/2015 12:06:00 Document Registration [id number] 01/09/2012 14:55:00 Document Registration [id number] 12/17/2011 02:16:00 Document Registration
--- OUTSIDE RECORDS SUMMARY | 2017-02-24 14:46 | XMS REPORT ---
Author Author ALEKSANDER JIMENEZ [facility] eClinicalWorks Address Unknown Phone Unavailable Care Team Providers Care Mill Oiler Name Role Phone ALEKSANDER JIMENEZ CP Unavailable Allergies No Known Allergies Problems Problem Type Condition Code Onset Dates Condition Status Problem Previous delivery affecting O34.21 Active Problem History of pre-eclampsia Z87.59 Active Problem Supervision of elderly multigravida, second trimester O09.522 Active Problem Rubella non-immune status, antepartum O99.89 Active Problem Glucose intolerance (pre-diabetes) 790.29 Active Medications No Known Medications Vital Signs Date/Time: Nov 30, 2014 Blood Pressure Diastolic 80 mmHg Blood Pressure Systolic 140 mmHg Height 64 in Results No Known Results Summary Purpose eClinicalWorks Submission
--- OUTSIDE RECORDS SUMMARY | 2017-02-24 14:46 | XMS REPORT ---
Author Author ALEKSANDER JIMENEZ [facility] eClinicalWorks Address Unknown Phone Unavailable Care Team Providers Care Brand Leader Name Role Phone ALEKSANDER JIMENEZ Unavailable Allergies [...]
--- OUTSIDE RECORDS SUMMARY | 2017-02-24 14:46 | XMS REPORT ---
Author Author ALEKSANDER JIMENEZ [facility] eClinicalWorks Address Unknown Phone Unavailable Care Team Providers Care Loader Technician Name Role Phone ALEKSANDER JIMENEZ CP Unavailable Allergies No Known Allergies Problems Problem Type Condition Code Onset Dates Condition Status Problem Supervision of elderly multigravida in third trimester O09.523 Active Problem Previous delivery affecting O34.21 Active Problem Gestational hypertension, third trimester O13.3 Active Problem Prediabetes R73.09 Active Assessment Elevated glucose tolerance test R73.02 Active Problem History of pre-eclampsia Z87.59 Active Problem Rubella non-immune status, antepartum O99.89 Active Medications No Known Medications Procedures Procedure Coding System Code Date GLUCOSE TOLERANCE TEST (GTT) CPT-4 26465 Feb 20, 2015 GTT-ADDED SAMPLES CPT-4 98322 Feb 20, 2015 Results No Known Results Summary Purpose [employer] Submission
--- OUTSIDE RECORDS SUMMARY | 2017-02-24 14:46 | XMS REPORT ---
Author ALEKSANDER Abraham [facility] eClinicalWorks Address Unknown Phone Unavailable Care Team Providers Care Field Pipelines Supervisor Name Role Phone ALEKSANDER JIMENEZ CP Unavailable Allergies No Known Allergies Problems Problem Type Condition ICD-9 Code Onset Dates Condition Status Problem Glucose intolerance (pre-diabetes) 790.29 Active Problem Supervision of elderly multigravida (>=35 years old at time of delivery) V23.82 Active Problem Rubella non-immune status, antepartum 646.83 Active Assessment History of pre-eclampsia in prior , currently V23.49 Active Problem Previous section V45.89 Active Problem History of pre-eclampsia in prior , currently V23.49 Active Medications No Known Medications Procedures Procedure Coding System Code Date Office Visit, Est Pt., Level 2 CPT-4 08932 Oct 21, 2014 URINE-NO MICRO CPT-4 24904 Oct 21, 2014 Vital Signs Date/Time: Oct 21, 2014 Temperature 97.0 F Weight 253.0 lbs Height 64 in BMI 43.42 Index Blood Pressure Diastolic 86 mmHg Blood Pressure Systolic 130 mmHg Results Name Result Date Reference Range Unit Abnormality Flag UA OB DIP (IN HOUSE) Summary Purpose eClinicalWorks Submission
--- OUTSIDE RECORDS SUMMARY | 2017-02-24 14:46 | XMS REPORT ---
Author Author ALEKSANDER JIMENEZ [facility] eClinicalWorks Address Unknown Phone Unavailable Care Team Providers Care Machine Umbrella Tipper Name Role Phone ALEKSANDER JIMENEZ CP Unavailable Allergies No Known Allergies Problems Problem Type Condition Code Onset Dates Condition Status Problem Supervision of elderly multigravida in third trimester O09.523 Active Problem Previous delivery affecting O34.21 Active Problem Gestational hypertension, third trimester O13.3 Active Problem Prediabetes R73.09 Active Problem History of pre-eclampsia Z87.59 Active Problem Rubella non-immune status, antepartum O99.89 Active Medications No Known Medications Vital Signs Date/Time: Feb 16, 2015 Blood Pressure Diastolic 90 mmHg Blood Pressure Systolic 144 mmHg Height 64 in Results No Known Results Summary Purpose eClinicalWorks Submission
--- OUTSIDE RECORDS SUMMARY | 2017-02-24 14:46 | XMS REPORT ---
Author Author ALEKSANDER JIMENEZ [facility] eClinicalWorks Address Unknown Phone Unavailable Care Team Providers Care Fish Peddler Name Role Phone ALEKSANDER JIMENEZ CP Unavailable Allergies No Known Allergies Problems Problem Type Condition Code Onset Dates Condition Status Assessment 22 weeks gestation of Z3A.22 Active Assessment Gestational hypertension, second trimester O13.2 Active Problem Supervision of elderly multigravida, second trimester O09.522 Active Problem Previous delivery affecting O34.21 Active Problem Gestational hypertension, second trimester O13.2 Active Problem Prediabetes R73.09 Active Assessment Supervision of elderly multigravida, second trimester O09.522 Active Problem History of pre-eclampsia Z87.59 Active Problem Rubella non-immune status, antepartum O99.89 Active Medications No Known Medications Procedures Procedure Coding System Code Date URINE-NO MICRO CPT-4 20159 Dec 16, 2014 Office Visit, Est Pt., Level 2 CPT-4 71017 Dec 16, 2014 Vital Signs Date/Time: Dec 16, 2014 Temperature 98.0 F Weight 251.7 lbs Height 64 in BMI 43.204 Index Blood Pressure Diastolic 96 mmHg Blood Pressure Systolic 146 mmHg Results Name Result Date Reference Range Unit Abnormality Flag UA OB DIP (IN HOUSE) Summary Purpose eClinicalWorks Submission
--- NOTE | 2017-02-24 15:25 | ED GU-Female ---
General Chief Complaint: -Female Stated Complaint: NO BLADDER CONTROL Source: patient Exam Limitations: no limitations History of Present Illness Time seen by provider: 15:23 Initial Comments To ER with reports of progressive loss of bladder control. This been ongoing for several months. She states that she's had several pregnancies. Initially this began months ago as dribbling herself when she would cough laugh or sneeze. Yesterday it progressed to the point that she felt the urge to urinate and before she could make it to the bathroom she completely soaked her pants with urine. She denies fevers chills nausea vomiting flank pain or low back pain. No saddle anesthesia. Activities at Onset: none Associated Symptoms: denies symptoms Allergies and Home Medications Allergies Coded Allergies: No Known Drug Allergies (Verified , 01/05/07) Home Medications Cephalexin 250 Mg Capsule, 500 MG PO QID, #21 Prescribed by: LUCI BENSON on 03/20/15813 Docusate Sodium 100 Mg Capsule, 100 MG PO BID, #40 Prescribed by: LUCI BENSON on 03/20/15813 Ferrous Sulfate 325 Mg Tablet, 325 MG PO DAILY@0700, #60 Prescribed by: LUCI BENSON on 03/20/15813 Ibuprofen 600 Mg Tablet, 600 MG PO Q6H PRN for PAIN, #80 Prescribed by: LUCI BENSON on 03/20/15813 Labetalol HCl 200 Mg Tablet, 200 MG PO TID, #90 Ref 1 Prescribed by: LUCI BENSON on 03/20/15813 Oxycodone HCl/Acetaminophen 1 Each Tablet, 1 TAB PO Q4H PRN for PAIN, #50 Prescribed by: LUCI BENSON on 03/20/15813 Constitutional: see HPI EENTM: see HPI Respiratory: no symptoms reported Cardiovascular: no symptoms reported Genitourinary: incontinence Musculoskeletal: no symptoms reported Past Fsgfnky-Kawytj-Nggewf Hx Patient Social History Recent Foreign Travel: No Contact w/Someone Who Travel: No Immunizations Up To Date Tetanus Booster (TDap): Unknown PED Vaccines UTD: Yes Date of Influenza Vaccine: Dec 18, 2014 Reproductive System Hx Reproductive Disorders: No Sexually Transmitted Disease: No HIV/AIDS: No Blood Transfusions Adverse Reaction to a Blood Tr: No Family Medical History Significant Family History: No Pertinent Family Hx Family Medial History: Autism (pt's brother) Physical Exam Vital Signs Vital Sign - Last 12Hours 02/24/17 15:30 Temp 98.4 Pulse 98 Resp 20 B/P (MAP) 151/101 (118) Pulse Ox 100 Capillary Refill : General Appearance: WD/WN, no apparent distress HEENT: PERRL/EOMI, normal ENT inspection Neck: non-tender, full range of motion Respiratory: no respiratory distress, no accessory muscle use Gastrointestinal: normal bowel sounds, non tender Neurologic/Psychiatric: alert, normal mood/affect, oriented x 3 Skin: normal color, warm/dry Progress/Results/Core Measures Suspected Sepsis SIRS Temperature: Pulse: Respiratory Rate: Blood Pressure / Mean: Results/Orders Lab Results Laboratory Tests Test 02/24/17 15:24 Range/Units Urine Color RED H Urine Clarity BLOODY H Urine pH 5 5-9 Urine Specific [place] 1.020 1.016-1.022 Urine Protein 3+ H NEGATIVE Urine Glucose (UA) NEGATIVE NEGATIVE Urine Ketones 1+ H NEGATIVE Urine Nitrite NEGATIVE NEGATIVE Urine Bilirubin NEGATIVE NEGATIVE Urine Urobilinogen 1 NORMAL MG/DL Urine Leukocyte Esterase 3+ H NEGATIVE Urine RBC (Auto) 5+ H NEGATIVE Urine RBC TNTC H /HPF Urine WBC 10-25 H /HPF Urine Squamous Epithelial Cells 0-2 /HPF Urine Crystals NONE /LPF Urine Bacteria TRACE /HPF Urine Casts NONE /LPF Urine Mucus NEGATIVE /LPF Urine Culture Indicated YES My Orders Orders - BENJAMIN MAGUIRE APRN Ua Culture If Indicated (02/24/17 14:41) Urine Bedside (02/24/17 14:41) Urine Culture (02/24/17 15:24) Vital Signs/I&O Vital Sign - Last 12Hours 02/24/17 15:30 Temp 98.4 Pulse 98 Resp 20 B/P (MAP) 151/101 (118) Pulse Ox 100 Capillary Refill : Departure Impression Impression: Primary Impression: Stress incontinence Additional Impression: Urinary tract infection Disposition: 01 HOME, SELF-CARE Condition: Stable Departure-Patient Inst. Decision time for Depature: 15:25 Referrals: LUCI BENSON DO (PCP/Family) Primary Care Physician Patient Instructions: Urinary Incontinence, Female (DC), Urinary Tract Infection, Adult (DC) Add. Discharge Instructions: 1. Call Dr. BENSON today or tomorrow to make an appointment to be seen. Ask if there is anything surgical such as a sling he can provide you with 2 help treat the symptoms. 2. antibiotics as directed All discharge instructions reviewed with patient and/or family. Voiced understanding. Scripts Sulfamethoxazole/Trimethoprim (Bactrim Ds Tablet) 1 Each Tablet 1 EACH PO BID, #14 TAB Prov: BENJAMIN MAGUIRE APRN 02/24/17 Copy Copies To 1: LUCI BENSON PETER J APRN Feb 24, 2017 15:25
[2017-02-24 15:35] LABS: BILIRUBIN,URINE NEGATIVE (NEGATIVE); CLARITY,URINE BLOODY; COLOR,URINE RED; GLUCOSE, URINE (UA) NEGATIVE (NEGATIVE); KETONES,URINE 1+ (NEGATIVE); LEUKOCYTE ESTERASE ,URINE 3+ (NEGATIVE); NITRITE,URINE NEGATIVE (NEGATIVE); PH,URINE 5 (5-9); PROTEIN,URINE 3+ (NEGATIVE); UROBILINOGEN,URINE 1 MG/DL (NORMAL)
[2017-02-24 15:43] LABS: BACTERIA,URINE TRACE /HPF; RBC,URINE TNTC /HPF; SQUAMOUS EPITHELIAL CELL,UR 0-2 /HPF
[2017-02-24] MEDS ORDERED: SULF1TAB35 PO (15:47)
[2017-02-24 15:53] VITALS: BP 142/68
== END 2017-02-24 15:53 | disposition home or self-care (01) ==
LOC: EDUNIT# 14:35 → ER 14:39
DX: N39.3 Stress incontinence (female) (male) (principal); N39.0 Urinary tract infection, site not specified
CPT/HCPCS: 81000; 84703; 87088; 99282

== ENCOUNTER 2017-04-17 21:28 | Emergency (ER) | payer SELFPAY ==
[~2017-04-17] VITALS: Ht 160 cm; Wt 117.9 kg
[~2017-04-17 21:28] MED LIST changes: +SULF1TAB35 PO
[2017-04-17] MEDS ORDERED: AMOX-358 PO (21:43)
--- NOTE | 2017-04-17 21:44 | ED EENT ---
History of Present Illness General Chief Complaint: Ear Problems Stated Complaint: R EAR PAIN Source: patient Exam Limitations: no limitations History of Present Illness Date Seen by Provider: Apr 17, 2017 Time Seen by Provider: 21:36 Initial Comments Patient presents to ER by private conveyance with a chief complaint of right ear pain that is sharp and stabbing like a knife for the past 30 minutes. She's had intermittent little pains for one to 5 minutes for the past 2-3 days of progressively gotten more frequent and painful. She has a history of multiple ear infections she's had tubes in her ears and she was a child. She does not use Q-tips or put anything in her ear canal. She has not been swimming. She's not had any discharge from her ears or bloody discharge. She is having no painful teeth or jaws. No pain on opening or closing her jaw. She's had no fevers, nausea, vomiting, chills Allergies and Home Medications Allergies Coded Allergies: No Known Drug Allergies (Verified , 01/05/07) Home Medications Amoxicillin/Potassium Clav 1 Each Tablet, 1 EACH PO BID Prescribed by: GERDA MALIN on 04/17/172142 Cephalexin 250 Mg Capsule, 500 MG PO QID Prescribed by: LUCI BENSON on 03/20/15813 Docusate Sodium 100 Mg Capsule, 100 MG PO BID Prescribed by: LUCI BENSON on 03/20/15813 Ferrous Sulfate 325 Mg Tablet, 325 MG PO DAILY@0700 Prescribed by: LUCI BENSON on 03/20/15813 Ibuprofen 600 Mg Tablet, 600 MG PO Q6H PRN for PAIN Prescribed by: LUCI BENSON on 03/20/15813 Labetalol HCl 200 Mg Tablet, 200 MG PO TID Prescribed by: LUCI BENSON on 03/20/15813 Oxycodone HCl/Acetaminophen 1 Each Tablet, 1 TAB PO Q4H PRN for PAIN Prescribed by: LUCI BENSON on 03/20/15 08 Sulfamethoxazole/Trimethoprim 1 Each Tablet, 1 EACH PO BID Prescribed by: BENJAMIN MAGUIRE on 02/24/17 1547 Patient Home Medication List Home Medication List Reviewed: Yes Review of Systems Constitutional: No chills Eyes: Denies Blindness, Denies Blurred Vision Ears: See HPI, Denies Dizziness, Pain, Denies Tinnitus, Denies Bloody Discharge , Denies Clear Discharge, Denies Purulent Discharge, Denies Serosanguinous Discharge, Denies Previous Injury Nose: denies clots, denies congestion Mouth: denies clots, denies loose teeth Throat: denies pain, denies swelling Respiratory: No cough, No dyspnea on exertion Past Fjmbdre-Ijkrih-Psgttw Hx Patient Social History 2nd Hand Smoke Exposure: Yes Recent Foreign Travel: No Contact w/Someone Who Travel: No Immunizations Up To Date Tetanus Booster (TDap): Unknown PED Vaccines UTD: Yes Date of Influenza Vaccine: Dec 18, 2014 Surgeries History of Surgeries: Yes Surgeries: Section, Gallbladder Respiratory History of Respiratory Disorde: No Cardiovascular History of Cardiac Disorders: No Neurological History of Neurological Disord: No Reproductive System Hx Reproductive Disorders: No Sexually Transmitted Disease: No HIV/AIDS: No Gastrointestinal History of Gastrointestinal Di: No Musculoskeletal History of Musculoskeletal Dis: No Endocrine History of Endocrine Disorders: No Cancer History of Cancer: No Psychosocial History of Psychiatric Problem: No Integumentary History of Skin or Integumenta: No Blood Transfusions History of Blood Disorders: No Adverse Reaction to a Blood Tr: No Family Medical History Significant Family History: No Pertinent Family Hx Family Medial History: Autism (pt's brother) Physical Exam Vital Signs Vital Signs - First Documented 04/17/17 21:36 Temp 98.7 Pulse 94 Resp 20 B/P (MAP) 196/126 (149) Pulse Ox 99 O2 Delivery Room Air General Appearance: WD/WN, mild distress Eyes: bilateral eye normal inspection, bilateral eye PERRL, bilateral eye EOMI Ears: right ear erythema, right ear tenderness, right ear TM dull, right ear TM red, right ear TM bulging, bilateral ear auricle normal, bilateral ear canal normal, bilateral ear other (bilateral otosclerosis) Nose: normal inspection, No discharge Mouth/Throat: normal mouth inspection, pharynx normal Neck: non-tender, supple, normal inspection Progress/Results/Core Measures Results/Orders My Orders Orders - GERDA MALIN Ibuprofen Tablet (Motrin Tablet) (04/17/17 21:45) Vital Signs/I&O Vital Sign - Last 12Hours 04/17/17 21:36 Temp 98.7 Pulse 94 Resp 20 B/P (MAP) 196/126 (149) Pulse Ox 99 O2 Delivery Room Air Departure Impression Impression: Primary Impression: Otitis media Qualified Codes: H66.001 - Acute suppurative otitis media without spontaneous rupture of ear drum, right ear Disposition: 01 HOME, SELF-CARE Condition: Stable Departure-Patient Inst. Decision time for Depature: 21:42 Referrals: [facility] (PCP/Family) Primary Care Physician Patient Instructions: Ear Infections (Otitis Media) (DC) Add. Discharge Instructions: Drink plenty of fluids and use Tylenol 1000 g every 6 hours and/or ibuprofen 800 mg every 8 hours as needed for pain. 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 If you're not seeing some improvement or you' re having fevers after day for follow-up with your primary care physician for further evaluation. All discharge instructions reviewed with patient and/or family. Voiced understanding. Scripts Amoxicillin/Potassium Clav (Augmentin 875-125 Tablet) 1 Each Tablet 1 EACH PO BID for 10 Days, #20 TAB 0 Refills Prov: GERDA MALIN 04/17/17 GERDA MALIN Apr 17, 2017 21:44
[2017-04-17] MEDS ORDERED: IBUPROFEN 800 MG (MOTRIN) TAB PO ONE (21:45)
[2017-04-17] MEDS ORDERED: RX-IBUPROFEN 600 MG (MOTRIN) TAB PPK#4 PO ONE (21:51)
[2017-04-17 21:55] VITALS: BP 0/0
[2017-04-17] MEDS ORDERED: RX-IBUPROFEN 600 MG (MOTRIN) TAB PPK#4 PO STA (21:57)
== END 2017-04-17 21:55 | disposition home or self-care (01) ==
LOC: EDUNIT# 21:28 → ER 21:30
DX: H66.91 Otitis media, unspecified, right ear (principal); Z87.59 Personal history of other complications of pregnancy, childbirth and the puerperium; Z77.22 Contact with and (suspected) exposure to environmental tobacco smoke (acute) (chronic)
CPT/HCPCS: 99283